=== PATIENT | male | born 1990 | race Caucasian/White ===

== ENCOUNTER 2022-12-29 04:45 | Day surgery (SDC) | payer BC ==
[2022-12-28 11:37] VITALS: BMI 32.3
[2022-12-29] MEDS ORDERED: oxyCODONE HCL 5 MG TABLET PO PRN (10:11)
[2022-12-29] MEDS ORDERED: ONDANSETRON 4 MG/2 ML VIAL IVPUSH PRN (10:11)
[2022-12-29] MEDS ORDERED: PROMETHAZINE HCL 25 MG/1 ML VIAL IVPB PRN (10:11)
[2022-12-29] MEDS ORDERED: LACTATED RINGERS SOLUTION 1,000 ML IV SCH (10:15)
[2022-12-29] MEDS ORDERED: ACETAMINOPHEN INJECTION 100 ML IVPB ONE (10:30)
[2022-12-29] MEDS ORDERED: LIDOCAINE HCL 1%, 10 MG/ML (20ML VIAL) ONE (10:55)
[2022-12-29] MEDS ORDERED: ceFAZolin 2 GRAM PREMIX BAG IVPB ONE (11:10)
[2022-12-29] MEDS ORDERED: BUPIVACAINE HCL/PF 0.5% (5MG/ML) 10 ML VIAL IJ ONE (11:23)
[2022-12-29] MEDS ORDERED: LIDOCAINE HCL 1%, 10 MG/ML (20ML VIAL) NR ONE (11:23)
[2022-12-29 15:12] VITALS: RESP 18
[2022-12-29 15:59] VITALS: BP 118/54; PULSE 63; TEMP 98
== END 2022-12-29 15:32 | disposition home or self-care (01) ==
LOC: JASU-SURG 04:45
PROVIDERS: ATTEND Surgery
PROC: 0YU50JZ Supplement Right Inguinal Region with Synthetic Substitute, Open Approach (ICD-10-PCS; principal; 2022-12-29 12:00)
DX: K40.90 Unilateral inguinal hernia, without obstruction or gangrene, not specified as recurrent (principal)
CPT/HCPCS: 94760; C1781